=== PATIENT | male | born 1960 | race Two or more races ===

== ENCOUNTER 2021-07-07 08:13 | Emergency (ER) | payer SELFPAY ==
[~2021-07-07] VITALS: Ht 177.8 cm; Wt 72.6 kg
== END 2021-07-07 12:34 | disposition left against medical advice (07) ==
LOC: ER 08:13 → EDBD 08:13 → ER 12:34
DX: M79.10 Myalgia, unspecified site (principal)

== ENCOUNTER 2021-07-20 06:36 | Emergency (ER) | payer SELFPAY ==
[~2021-07-20] VITALS: Ht 180.3 cm; Wt 77.1 kg
[2021-07-20 08:00] LABS: Basophils # (auto) 0 10 ^3/uL (0-0.2); Eosinophils # (auto) 0 10 ^3/uL (0-0.8); Hemoglobin 11.6 g/dL (13.5-17.5); Lymphocytes # (auto) 0.3 10 ^3/uL (0.4-5.4); Monocytes # (auto) 0.1 10 ^3/uL (0-1.3)
[2021-07-20 08:02] LABS: Basophils % (auto) 0.6 % (0.0-2.0); Eosinophils % (auto) 0.1 % (0.0-7.0); Lymphocytes % (auto) 6.4 % (10.0-50.0); Mean Corpuscular Hgb Conc. 33.2 g/dL (32.0-36.0); Mean Corpuscular Volume 81.2 fL (80.0-100.0); Monocytes % (auto) 1.9 % (0.0-12.0); Neutrophils # (auto) 3.9 10 ^3/uL (1.6-8.6); Nucleated Red Blood Cells % 0.3 %; Red Blood Cells 4.31 10^6/uL (4.5-5.90); Red Cell Distribution Width 14.1 % (11.8-14.3); White Blood Cell 4.3 10^3/uL (4.4-10.8)
[2021-07-20 08:15] LABS: Albumin 2.3 g/dL (3.4-5.0); Calcium 7.8 mg/dL (8.5-10.1); Potassium 3.5 mmol/L (3.5-5.1)
[2021-07-20 08:19] LABS: BUN/Creatinine Ratio 16.2; Bilirubin, Total 0.7 mg/dL (0.2-1.0); Total Protein 7.2 g/dL (6.4-8.2)
[2021-07-20 09:00] VITALS: BP 140/68
== END 2021-07-20 08:50 | disposition home or self-care (01) ==
LOC: ER 06:36 → EDBD 06:36 → ER 08:50
DX: M79.10 Myalgia, unspecified site (principal); E11.9 Type 2 diabetes mellitus without complications
CPT/HCPCS: 36415; 80053; 82962; 85025

== ENCOUNTER 2021-07-22 03:38 | Emergency (ER) | payer SELFPAY ==
[2021-07-22 04:33] LABS: BUN/Creatinine Ratio 35.9; Calcium 7.5 mg/dL (8.5-10.1)
[2021-07-22 04:38] LABS: Lactic Acid w/Reflex 8.7 mmol/L (0.4-2.0)
== END 2021-07-22 13:27 | disposition home or self-care (01) ==
LOC: ER 03:38 → EDBD 03:38 → ER 13:27
DX: I46.9 Cardiac arrest, cause unspecified (principal); E11.9 Type 2 diabetes mellitus without complications
CPT/HCPCS: 36415; 36600; 80048; 82805; 83605; 92950